=== PATIENT | female | born 1935 | race Asian ===

== ENCOUNTER 2017-08-14 19:08 | Inpatient (IN) | payer MEDICAID, OTHER ==
[~2017-08-14] VITALS: Ht 154.9 cm; Wt 63.5 kg
[~2017-08-14 19:08] MED LIST: ASCO10007 PO; ASPI81TA2 PO; ATOR20TA PO; CALC500T71 PO; CHOL100040 PO; DOXA2TAB PO; LEVO88TA28 PO; LISI40TA4 PO; MULT-1168 PO; OMEG1CAP36 PO; WARF2.5T47 PO
--- NOTE | 2017-08-14 19:12 | NUR ---
DR GONSALES AT BEDSIDE FOR EVAL.
--- NOTE | 2017-08-14 19:53 | NUR ---
ONLINE TRADER AT BEDSIDE FOR BLOOD DRAW.
--- NOTE | 2017-08-14 19:53 | NUR ---
Garland chaudhari in [facility] - 08/14/17 at 2132 by MATTY MANAGER DELI AT BEDSIDE FOR DONALDAL.
[2017-08-14 19:58] LABS: BASOPHILS # (AUTO) 0.1 /CMM (0.0-0.2); EOSINOPHILS # (AUTO) 0.1 /CMM (0.0-0.7); EOSINOPHILS % (AUTO) 1.3 % (0.0-6.0); HEMATOCRIT 37 % (33-45); HEMOGLOBIN 12.8 g/dL (11.5-14.8); LYMPHOCYTES % (AUTO) 23.4 % (20.0-44.0); MEAN CORPUSCULAR HEMOGLOBIN 33 PG (26.0-33.0); MEAN CORPUSCULAR HGB CONC 34 g/dl (31.0-36.0); MEAN CORPUSCULAR VOLUME 97 fL (82-100); MONOCYTES # (AUTO) 0.5 /CMM (0.1-1.30); MONOCYTES % (AUTO) 6.1 % (2.0-12.0); NEUTROPHILS # (AUTO) 5.7 /CMM (1.8-8.9); NEUTROPHILS % (AUTO) 68.2 % (43.0-81.0); PLATELET COUNT (AUTO) 151 /CMM (150-450); RDW COEFFICIENT OF VARIATION 13.1 (11.5-15.0); RED BLOOD CELL COUNT(AUTO) 3.83 MIL/uL (4.0-5.2); WHITE BLOOD COUNT (AUTO) 8.4 K/uL (4.3-11.0)
[2017-08-14 20:08] LABS: CALCIUM, SERUM 9.5 mg/dL (8.5-10.1); CARBON DIOXIDE 28 mmol/L (21-32); CHLORIDE 106 mmol/L (98-107); CREATININE 0.9 mg/dL (0.6-1.3); GLUCOSE 111 mg/dL (74-106); POTASSIUM 3.9 mmol/L (3.5-5.1); SODIUM SERUM 141 mmol/L (136-145); UREA NITROGEN, BLOOD 15 mg/dL (7-18)
[2017-08-14 20:12] LABS: INR 1.01 (0.87-1.13); PROTHROMBIN TIME 10.5 SECS (9.5-12.7)
[2017-08-14 20:16] LABS: TROPONIN I < 0.017 ng/mL (0.00-0.056)
[2017-08-14 20:21] LABS: B-TYPE NATRIURETIC PEPTIDE 222 PG/ML (0-125)
[2017-08-14 20:24] LABS: MAGNESIUM 1.9 mg/dL (1.8-2.4); THYROID STIMULATING HORMONE 2.296 uIU/mL (0.358-3.74)
[2017-08-14] MEDS ORDERED: NITROGLYCERIN PACKET 1 GM PACKET TOP ONE (21:00)
[2017-08-14] MEDS ORDERED: NITROGLYCERIN PACKET 1 GM PACKET ONE (21:34)
[2017-08-14] MEDS ORDERED: MORPHINE SULFATE INJ 2 MG/ML DISP.SYRIN IV PRN (22:00)
[2017-08-14] MEDS ORDERED: NITROGLYCERIN 0.4 MG/TAB BOTTLE SL PRN (22:00)
[2017-08-14] MEDS ORDERED: ONDANSETRON HCL/PF 4 MG/2 ML VIAL IVP PRN (22:00)
[2017-08-14] MEDS ORDERED: WARFARIN SODIUM 2.5 MG TABLET PO SCH (22:00)
[2017-08-14] MEDS ORDERED: ZOLPIDEM TARTRATE 5 MG TABLET PO PRN (22:00)
[2017-08-14] MEDS ORDERED: DOXAZOSIN MESYLATE (1 MG) 1 MG TABLET PO SCH (22:00)
[2017-08-14] MEDS ORDERED: ATORVASTATIN 10 MG TABLET PO SCH (22:00)
--- NOTE | 2017-08-14 22:01 | NUR ---
report given to yo. pt awaiting transfer to floor.
[2017-08-14 22:10] VITALS: BP 138/73
--- NOTE | 2017-08-14 22:10 | NUR ---
FOREIGN LANGUAGE INSTRUCTOR NOTES: RECEIVED PT ON PREM. AT BEDSIDE. PT IS A/OX4. PT REPORTS THAT SHE NO LONGER HAS CHEST PRESSURE. PT HAS IV ON L HAND #18G AND IS PATENT AND INTACT. PT CURRENTLY S/L. CALL LIGHT WITHIN PT'S REACH. BED KEPT IN LOW, LOCKED POSITION, AND SIDE RAILS X 2 UP. WILL CONTINUE TO MONITOR PT. Addendum: 08/15/17 at 0352 by TUYET RAMEY RN PT HAD NITRO BID PATCH ON HER CHEST APPLIED FROM ER.
[2017-08-14] MEDS ORDERED: ASPIRIN 325 MG TABLET PO STA (22:20)
[2017-08-14] MEDS ORDERED: ASPIRIN 325 MG TABLET ONE (22:38)
[2017-08-14] MEDS ORDERED: ATORVASTATIN 10 MG TABLET ONE (22:40)
[2017-08-14] MEDS ORDERED: DOXAZOSIN MESYLATE (1 MG) 1 MG TABLET ONE (22:41)
[2017-08-14 22:50] VITALS: BP 138/73
--- NOTE | 2017-08-14 22:50 | NUR ---
REWINDER NOTES: ASPIRIN 325MG WAS NOT GIVEN BY ER. GAVE IT TO PATIENT PER ORDERING MD JI GONSALES.
[2017-08-15] VITALS: BP 110/50
--- NOTE | 2017-08-15 00:37 | NUR ---
MOTORCYLES FINAL INSPECTOR NOTES: DIONI OSEGUERA IN PT'S ROOM. GOT VERBAL ORDER TO STOP ASPIRIN AND START ELIQUIS 5MG PO BID IN THE MORNING. Addendum: 08/15/17 at 0053 by TUYET RAMEY RN ALSO TO STOP COUMADIN.
[2017-08-15 04:00] VITALS: BP 121/57
[2017-08-15] MEDS ORDERED: APIXABAN 5 MG TABLET PO SCH ×2 (06:00→09:00)
--- NOTE | 2017-08-15 06:45 | NUR ---
CASHIER WRAPPER CLOSING NOTES: ALL NEEDS WERE ATTENDED AND ANTICIPATED FOR. PT IS RESTING IN BED COMFORTABLY. PT KEPT CLEAN, DRY, AND COMFORTABLE. PT HAS IV ON L HAND AND IS PATENT AND INTACT. PT CURRENTLY S/L. PT ON TELE MONITOR AND READING SHOWS SB 56. PT IS A/OX4. NO COMPLAINTS OF PAIN AT THIS TIME. NO S/S OF DISTRESS. CALL LIGHT WITHIN PT'S REACH. BED KEPT IN LOW, LOCKED POSITION, AND SIDE RAILS X 2UP. WILL ENDORSE TO AM NURSE FOR SUZE.
[2017-08-15 06:49] LABS: CHOLESTEROL 146 mg/dL (<200); HDL CHOLESTEROL 77 mg/dL (40-60); LDL 65 mg/dL (0-99); TRIGLYCERIDES 64 mg/dL (30-150)
[2017-08-15] MEDS ORDERED: NITROGLYCERIN 30 GM TUBE TP PRN (07:00)
--- NOTE | 2017-08-15 07:15 | NUR ---
SOA INTEGRATION DEVELOPER OPENING NOTES RECEIVED PT IN STABLE CONDITION. PATIENT IS ALERT AND ORIENTED. CALL LIGHT IS WITHIN REACH. BEDSIDE RAILS ARE UP X2. BED IS LOCKED AND LOWERED. WILL CONTINUE TO MONITOR.
[2017-08-15 08:00] VITALS: BP 131/54
[2017-08-15 08:21] VITALS: BP 131/71
[2017-08-15] MEDS ORDERED: CALCIUM CARBONATE (1250) 500 MG TABLET PO SCH (09:00)
[2017-08-15] MEDS ORDERED: LISINOPRIL (20MG) 20 MG TABLET PO SCH (09:00)
[2017-08-15] MEDS ORDERED: LEVOTHYROXINE SODIUM 88 MCG TABLET PO SCH (09:00)
[2017-08-15] MEDS ORDERED: ASPIRIN 81 MG TAB.CHEW PO SCH (09:00)
--- NOTE | 2017-08-15 09:10 | NUR ---
PATIENTS (JADA) GAVE ME A COPY OF THE PT'S ADVANCED DIRECTIVE. MADE A COPY AND PLACED IT IN THE FILE.
[2017-08-15 11:51] LABS: BASOPHILS % (AUTO) 0.6 % (0.0-2.0); EOSINOPHILS # (AUTO) 0.1 /CMM (0.0-0.7); EOSINOPHILS % (AUTO) 2.1 % (0.0-6.0); HEMATOCRIT 33 % (33-45); HEMOGLOBIN 10.9 g/dL (11.5-14.8); LYMPHOCYTES # (AUTO) 1.9 /CMM (0.8-4.8); LYMPHOCYTES % (AUTO) 30.9 % (20.0-44.0); MEAN CORPUSCULAR HEMOGLOBIN 33 PG (26.0-33.0); MEAN CORPUSCULAR HGB CONC 33 g/dl (31.0-36.0); MEAN CORPUSCULAR VOLUME 99 fL (82-100); MONOCYTES # (AUTO) 0.5 /CMM (0.1-1.30); MONOCYTES % (AUTO) 7.9 % (2.0-12.0); NEUTROPHILS # (AUTO) 3.6 /CMM (1.8-8.9); NEUTROPHILS % (AUTO) 58.5 % (43.0-81.0); PLATELET COUNT (AUTO) 139 /CMM (150-450); RDW COEFFICIENT OF VARIATION 14.3 (11.5-15.0); RED BLOOD CELL COUNT(AUTO) 3.28 MIL/uL (4.0-5.2); WHITE BLOOD COUNT (AUTO) 6.2 K/uL (4.3-11.0)
[2017-08-15 12:02] LABS: PHOSPHORUS 4.2 mg/dL (2.5-4.9)
--- NOTE | 2017-08-15 15:00 | NUR ---
YOGA TEACHER NOTES PATIENT WAS DISCHARGED HOME IN STABLE CONDITION. PATIENT ALERT AND ORIENTED. PATIENT WAS EDUCATED ABOUT DISCHARGE INSTRUCTIONS. IV WAS REMOVED. PATIENT WAS ABLE TO WALK OUT OF THE FACILITY. PATIENTS SON WILL DRIVE THE PATIENT HOME.
== END 2017-08-15 16:50 | disposition home or self-care (01) | DRG 303 ==
LOC: ER 19:09 → TELE 21:22 → MED 08-15 09:06 → TELE 08-15 09:09
PROVIDERS: ADMIT Nurse Practitioner Acute Care; ATTEND Nurse Practitioner Acute Care
DX: I25.110 Atherosclerotic heart disease of native coronary artery with unstable angina pectoris (principal); I48.0 Paroxysmal atrial fibrillation; I16.0 Hypertensive urgency; E03.9 Hypothyroidism, unspecified; E78.5 Hyperlipidemia, unspecified; M19.90 Unspecified osteoarthritis, unspecified site; Z79.899 Other long term (current) drug therapy; Z87.891 Personal history of nicotine dependence; Z88.0 Allergy status to penicillin
CPT/HCPCS: 36415; 71010-TC; 80048-TC; 80061-TC; 83735-TC; 83880; 84100-TC; 84443-TC; 84484-TC; 85025-TC; 85730-TC; 87081-TC; 93307-TC; A4606; Z7610

== ENCOUNTER 2020-03-27 01:29 | Emergency (ER) | payer MEDICAID, OTHER ==
[~2020-03-27] VITALS: Ht 154.9 cm; Wt 63.5 kg
[~2020-03-27 01:29] MED LIST changes: +ASPI-1169 PO; -ASPI81TA2 PO; +CALC-1026 PO; -CALC500T71 PO; -LEVO88TA28 PO; +LEVO88TA39 PO; +WARF2.5T PO; -WARF2.5T47 PO
[2020-03-27] MEDS ORDERED: DILTIAZEM HCL 25 MG IV ONE (01:52)
[2020-03-27] MEDS ORDERED: DILTIAZEM HCL 50 MG IV IV ONE (02:00)
--- NOTE | 2020-03-27 02:12 | NUR ---
PATIENT CAME TO ER BED 9 C/O "I THINK I AM HAVING ATRIAL FIBRILLATION". PATIENT STATES THAT SHE TOOK. AMIODARONE 100MG IN 1110 AND DOXAZOSIN 4MG AT 0630 OF YESTERDAY. PATIENT DENIES CHEST PAIN, DENIES SHORTNESS OF BREATH. AAOX4. BREATHING EVENLY AND UNLABORED ON ROOM AIR. CONNECTED TO CLEANER CARPET AND UPHOLSTERY.
[2020-03-27 02:24] LABS: BASOPHILS % (AUTO) 0.5 % (0.0-2.0); EOSINOPHILS % (AUTO) 1.1 % (0.0-6.0); HEMATOCRIT 36 % (33-45); HEMOGLOBIN 12.2 g/dL (11.5-14.8); LYMPHOCYTES # (AUTO) 2.8 /CMM (0.8-4.8); LYMPHOCYTES % (AUTO) 33.2 % (20.0-44.0); MEAN CORPUSCULAR HGB CONC 34 g/dl (31.0-36.0); MEAN CORPUSCULAR VOLUME 97 fL (82-100); MONOCYTES # (AUTO) 0.6 /CMM (0.1-1.30); NEUTROPHILS # (AUTO) 4.9 /CMM (1.8-8.9); NEUTROPHILS % (AUTO) 58.2 % (43.0-81.0); PLATELET COUNT (AUTO) 164 /CMM (150-450); RED BLOOD CELL COUNT(AUTO) 3.73 MIL/uL (4.0-5.2); WHITE BLOOD COUNT (AUTO) 8.4 K/uL (4.3-11.0)
--- NOTE | 2020-03-27 02:24 | NUR ---
TECH AT BEDSIDE FOR EKG
--- NOTE | 2020-03-27 02:37 | NUR ---
tech at bedside for 2nd ekg.
[2020-03-27 02:44] LABS: CALCIUM, SERUM 9.2 mg/dL (8.5-10.1); CARBON DIOXIDE 27 mmol/L (21-32); CHLORIDE 106 mmol/L (98-107); CREATININE 1.1 mg/dL (0.6-1.3); GLUCOSE 138 mg/dL (74-106); POTASSIUM 3.7 mmol/L (3.5-5.1); SODIUM SERUM 141 mmol/L (136-145); UREA NITROGEN, BLOOD 18 mg/dL (7-18)
[2020-03-27 02:49] LABS: ALANINE AMINOTRANSFERASE 33 U/L (12-78); ALBUMIN 3.8 g/dL (3.4-5.0); ALKALINE PHOSPHATASE 62 U/L (46-116); ASPARTATE AMINOTRANSFERASE 20 U/L (15-37); B-TYPE NATRIURETIC PEPTIDE 261 PG/ML (0-125); BILIRUBIN,DIRECT 0.1 mg/dL (0.0-0.2); BILIRUBIN,TOTAL 0.4 mg/dL (0.2-1.0); TOTAL PROTEIN, SERUM 7.2 g/dL (6.4-8.2)
--- NOTE | 2020-03-27 02:53 | NUR ---
IV removed. Catheter intact and site benign. Pressure and 4x4 applied to site. No bleeding noted.
--- NOTE | 2020-03-27 02:53 | NUR ---
Patient discharged to home in stable condition. Written and verbal after care instructions given. Patient verbalizes understanding of instruction.
--- NOTE | 2020-03-27 02:53 | NUR ---
OUTSIDE TO OIL SALES AND SERVICE REP PATIENT.
[2020-03-27 03:02] VITALS: BP 138/62
== END 2020-03-27 03:04 | disposition home or self-care (01) ==
LOC: ER 01:34
DX: I48.91 Unspecified atrial fibrillation (principal); I10 Essential (primary) hypertension; E78.00 Pure hypercholesterolemia, unspecified; M19.90 Unspecified osteoarthritis, unspecified site; Z88.0 Allergy status to penicillin; Z87.891 Personal history of nicotine dependence; Z79.82 Long term (current) use of aspirin; Z79.899 Other long term (current) drug therapy
CPT/HCPCS: 36415; 71045; 80048; 80076; 83880; 84484; 85025; 85730; 93005 ×2; 99285; J3490

== ENCOUNTER 2020-11-16 03:56 | Inpatient (IN) | payer OTHER ==
[~2020-11-16] VITALS: Ht 154.9 cm; Wt 61.5 kg
[~2020-11-16 03:56] MED LIST changes: +ASCO100058 PO; -ASCO10007 PO; +LISI40TA13 PO; -LISI40TA4 PO
--- NOTE | 2020-11-16 04:00 | NUR ---
PATIENT CAME TO THE ED BED 11 C/O "ABNORMAL HEART RHYTHM" WHILE AT HOME. PATIENT HAS HISTORY OF ATRIAL FIBRILLATION. UPON ARRIVAL, PATIENT WAS SEEN BY MD AND SAW AN A SHAUN W/ RVR. PATIENT IS AAOX.4 NO SOB .BREATHING EVENLY AND UNLABORED ON ROOM AIT. CONNECTED TO THE MANAGER OF CASE.
[2020-11-16] MEDS ORDERED: DILTIAZEM HCL 30 MG TABLET ONE (04:17)
--- NOTE | 2020-11-16 04:24 | NUR ---
AT BEDSIDE. PATIENT HAS CONVERTED TO NORMAL SINUS RHYTHM.
[2020-11-16] MEDS ORDERED: DILTIAZEM HCL 50 MG IV IV ONE (04:30)
[2020-11-16] MEDS ORDERED: DILTIAZEM HCL 30 MG TABLET PO ONE (04:30)
[2020-11-16 04:44] LABS: BASOPHILS % (AUTO) 0.4 % (0.0-2.0); EOSINOPHILS % (AUTO) 2.5 % (0.0-6.0); HEMATOCRIT 40 % (33-45); HEMOGLOBIN 13.6 g/dL (11.5-14.8); LYMPHOCYTES # (AUTO) 3.4 /CMM (0.8-4.8); LYMPHOCYTES % (AUTO) 31.5 % (20.0-44.0); MEAN CORPUSCULAR HGB CONC 34 g/dl (31.0-36.0); MEAN CORPUSCULAR VOLUME 98 fL (82-100); MONOCYTES # (AUTO) 0.6 /CMM (0.1-1.30); NEUTROPHILS # (AUTO) 6.5 /CMM (1.8-8.9); NEUTROPHILS % (AUTO) 59.6 % (43.0-81.0); PLATELET COUNT (AUTO) 187 /CMM (150-450); RED BLOOD CELL COUNT(AUTO) 4.11 MIL/uL (4.0-5.2); WHITE BLOOD COUNT (AUTO) 10.8 K/uL (4.3-11.0)
[2020-11-16 05:00] LABS: CALCIUM, SERUM 9.4 mg/dL (8.5-10.1); POTASSIUM 3.8 mmol/L (3.5-5.1)
[2020-11-16] MEDS ORDERED: AMLO5TAB4 PO (05:58)
[2020-11-16] MEDS ORDERED: APIX2.5T PO (05:58)
[2020-11-16] MEDS ORDERED: METO25TA4 PO (05:58)
[2020-11-16] MEDS ORDERED: ASPIRIN 81 MG TAB.CHEW PO ONE (06:00)
--- NOTE | 2020-11-16 06:17 | NUR ---
NOTED BRADYCARDIA. PT STILL ON CONTINUOUS SATELLITE TELEVISION INSTALLER AND PULSE. NO ACUTE DISTRESS NOTED AT THIS TIME. DR. SWARTZ MADE AWARE.
--- NOTE | 2020-11-16 06:20 | NUR ---
DR. SWARTZ SPEAKING WITH DR. WELCH (PRAVIN SILVERIO). REC'D VERBAL AUTH TO ADMIT PT TO [facility]
[2020-11-16] MEDS ORDERED: ASPIRIN 325 MG TABLET ONE (06:28)
[2020-11-16] MEDS ORDERED: ONDANSETRON HCL/PF 4 MG/2 ML VIAL IVP PRN (07:00)
[2020-11-16] MEDS ORDERED: ACETAMINOPHEN 325 MG TABLET PO PRN (07:00)
[2020-11-16] MEDS ORDERED: MAG HYDROX/AL HYDROX/SIMETH 30 ML UDC PO PRN (07:00)
[2020-11-16] MEDS ORDERED: Z GUARD REMEDY 2 OZ OINT TP PRN (07:00)
[2020-11-16] MEDS ORDERED: MAGNESIUM HYDROXIDE 30 ML UDC PO PRN (07:00)
[2020-11-16] MEDS ORDERED: ZOLPIDEM TARTRATE 5 MG TABLET PO PRN (07:00)
[2020-11-16] MEDS ORDERED: HYDROCODONE/APAP 5/325MG TABLET PO PRN (07:00)
--- NOTE | 2020-11-16 07:15 | NUR ---
ASSESSED PT ON BED AWAKE AND ALERT NOT IN RESPIRATORY DISTRESS, V/S STABLE, KEPT RESTED AND COMFORTABLE. WILL CONTINUE TO MONITOR.
--- NOTE | 2020-11-16 07:24 | NUR ---
faxed facesheet to ellie from [facility] [phone]
[2020-11-16] MEDS ORDERED: LEVOTHYROXINE SODIUM 100 MCG TABLET ONE (07:51)
[2020-11-16] MEDS: LEVOTHYROXINE SODIUM 100 MCG TABLET PO SCH (07:58)
--- NOTE | 2020-11-16 08:13 | NUR ---
AT BEDSIDE FOR EVAL.
[2020-11-16] MEDS ORDERED: APIXABAN 2.5 MG TABLET ONE (08:23)
[2020-11-16] MEDS ORDERED: ASPIRIN 81 MG TAB.CHEW ONE (08:23)
[2020-11-16] MEDS: ASPIRIN 81 MG TAB.CHEW PO SCH (08:35)
--- NOTE | 2020-11-16 08:37 | NUR ---
room [id number]
[2020-11-16] MEDS: METOPROLOL SUCCINATE 25 MG TAB.SR.24H PO SCH ×2 (08:38→17:29)
[2020-11-16] MEDS: APIXABAN 2.5 MG TABLET PO SCH ×2 (08:39→17:28)
[2020-11-16] MEDS: LISINOPRIL (20MG) 20 MG TABLET PO SCH ×2 (08:39→17:29)
--- NOTE | 2020-11-16 08:39 | NUR ---
LISINOPRIL AND METOPROLOL NOT GIVEN HR IS 53 AND BP OF 128/54.
--- NOTE | 2020-11-16 08:45 | NUR ---
report given to Eryn TRAN for brandon
--- NOTE | 2020-11-16 09:00 | NUR ---
RN NOTES ADMITTED PATIENT FROM ER, REPORT GIVEN BY DANII TRAN. PATIENT ALERT ORIENTED X 4. NO ACUTE DISTRESS NOTED, BREATHING UNLABORED. IV ACCESS PATENT NAD INTACT. PLACED PROCESS CONTROL TECH. ORIENTED TO THE ROOM. CALL LIGHT WITHIN REACH. SAFETY MEASURES IN PLACED. WILL CONTINUE TO MONITOR ACCORDINGLY.
[2020-11-16 09:30] VITALS: BP 129/55
[2020-11-16 12:00] VITALS: BP 151/57
[2020-11-16 16:00] VITALS: BP 154/58
--- NOTE | 2020-11-16 18:59 | NUR ---
GLASS ARTIST NOTES PATIENT IN BED ALERT ORIENTED X 4. NO ACUTE DISTRESS NOTED. BREATHING UNLABORED. NO SOB NOTED. IV ACCESS PATENT AND INTACT, NO REDNESS, NO SWELLING NOTED. NEEDS ATTENDED AND ANTICIPATED. KEPT, CLEAN DRY AND COMFORTABLE. SAFETY MEASURES IN PLACE. CALL LIGHT WITHIN REACH. WILL ENDORSE TO NIGHT NURSE FOR CONTINUITY OF CARE.
--- NOTE | 2020-11-16 19:30 | NUR ---
TELE/RN OPENING RECEIVED PATIENT IN BED RESTING. PATIENT IS ALERT AND ORIENTED X 4. PATIENTS BREATHING IS EVEN AND UNLABORED. NO SIGNS OF SOB OR RESPIRATORY DISTRESS NOTED. PATIENT STATES NO PAIN AT THIS TIME. PATIENT IV ACCESS ON LFA INTACT FLUSHING WELL. SAFETY MEASURES ARE IN PLACE, BED IS LOCKED AND PLACED IN THE LOWEST POSITION, SIDE RAILS UP X 2, CALL LIGHT IS WITHIN REACH. WILL CONTINUE TO MONITOR THROUGH OUT SHIFT.
[2020-11-16 20:00] VITALS: BP 141/65
[2020-11-16] MEDS ORDERED: AMLODIPINE BESYLATE 5 MG TABLET PO SCH (22:00)
[2020-11-17] VITALS: BP 138/53
[2020-11-17 04:00] VITALS: BP 142/83
--- NOTE | 2020-11-17 06:40 | NUR ---
TELE/RN CLOSING NOTES PATIENT IN BED RESTING. PATIENT IS ALERT AND ORIENTED X 4. PATIENTS BREATHING IS EVEN AND UNLABORED. NO SIGNS OF SOB OR RESPIRATORY DISTRESS NOTED. PATIENT STATES NO PAIN AT THIS TIME. PATIENT IV ACCESS ON LFA INTACT FLUSHING WELL. PATIENT ABLE TO AMBULATE BY SELF. ALL NEED HAVE BEEN MET DURING SHIFT. SAFETY MEASURES ARE IN PLACE, BED IS LOCKED AND PLACED IN THE LOWEST POSITION, SIDE RAILS UP X 2, CALL LIGHT IS WITHIN REACH. WILL ENDORSE CARE TO DAY SHIFT NURSE.
[2020-11-17 06:47] LABS: BASOPHILS % (AUTO) 0.4 % (0.0-2.0); EOSINOPHILS % (AUTO) 3.1 % (0.0-6.0); HEMATOCRIT 36 % (33-45); HEMOGLOBIN 12.3 g/dL (11.5-14.8); LYMPHOCYTES # (AUTO) 4.4 /CMM (0.8-4.8); LYMPHOCYTES % (AUTO) 46.7 % (20.0-44.0); MEAN CORPUSCULAR HGB CONC 34 g/dl (31.0-36.0); MEAN CORPUSCULAR VOLUME 98 fL (82-100); MONOCYTES # (AUTO) 0.6 /CMM (0.1-1.30); MONOCYTES % (AUTO) 6.7 % (2.0-12.0); NEUTROPHILS # (AUTO) 4.1 /CMM (1.8-8.9); NEUTROPHILS % (AUTO) 43.1 % (43.0-81.0); PLATELET COUNT (AUTO) 183 /CMM (150-450); RED BLOOD CELL COUNT(AUTO) 3.72 MIL/uL (4.0-5.2); WHITE BLOOD COUNT (AUTO) 9.5 K/uL (4.3-11.0)
[2020-11-17] MEDS: LEVOTHYROXINE SODIUM 100 MCG TABLET PO SCH (07:02)
[2020-11-17 07:09] LABS: ALBUMIN 3.3 g/dL (3.4-5.0); BILIRUBIN,TOTAL 0.5 mg/dL (0.2-1.0); CALCIUM, SERUM 9.3 mg/dL (8.5-10.1); MAGNESIUM 1.9 mg/dL (1.8-2.4); PHOSPHORUS 3.7 mg/dL (2.5-4.9); POTASSIUM 4.5 mmol/L (3.5-5.1); TOTAL PROTEIN, SERUM 6.5 g/dL (6.4-8.2)
--- NOTE | 2020-11-17 07:25 | NUR ---
MOBILE HOME LOT UTILITY WORKER OPENING NOTES RECEIVED PATIENT AWAKE AND SITTING IN BED. A/O X4. ABLE TO MAKE NEEDS KNOWN, DENIES PAIN OR ANY DISCOMFORTS AT THIS TIME AND STATED THAT SHE'S READY TO GO HOME. ON ROOM AIR, BREATHING EVEN AND UNLABORED. ON EXTERNAL ENTERPRISE SOFTWARE ENGINEER WITH CURRENT READING OF SB W/ HR OF 59, NO C/O CARDIAC DISTRESS VOICED. IV ACCES ON LFA INTACT AND PATENT. SAFETY MEASURES IN PLACE: BED IS LOW AND LOCKED, SIDE RAILS UP X2 AND CALL LIGHT WITHIN REACH. WILL CONTINUE TO MONITOR.
[2020-11-17 08:00] VITALS: BP 153/60
[2020-11-17] MEDS ORDERED: DIGO125T PO (08:16)
[2020-11-17 08:21] VITALS: BP 153/60
[2020-11-17] MEDS: LISINOPRIL (20MG) 20 MG TABLET PO SCH (08:21)
[2020-11-17] MEDS: ASPIRIN 81 MG TAB.CHEW PO SCH (08:23)
[2020-11-17] MEDS: APIXABAN 2.5 MG TABLET PO SCH (08:25)
--- NOTE | 2020-11-17 14:31 | NUR ---
RN DISCHARGED NOTES PT DISCHARGED HOME IN STABLE CONDITION. A/O X4 AND ABLE TO MAKE NEEDS KNOWN. V/S TAKEN, STABLE AND RECORDED. OFFERED TO GIVE FLU SHOT BUT PT REFUSED ,STATED THAT SHE TOOK ALREADY HER FLU SHOT ON JUN OR JUL 2020, SHE JUST COULDN'T REMEMBER THAT EXACT MONTH AND DATE. ALL BELONGINGS ACCOUNTED FOR AND SIGNED FORM. IV ACCESS ON LFA REMOVED, DRY PRESSURE DRESSING APPLIED TO SITE. NAME ARMBAND REMOVED. HEALTH TEACHINGS/DISCHARGED INSTRUCTIONS GIVEN TO PT AND VERBALIZED UNDERSTANDING. EXIT FOLDER HANDED TO PT. PT LEFT UNIT [place] WHEELCHAIR @ [id number] ACCOMPANIED BY ME TO [facility]EE. PT'S SON JEANMARIE WILL TAKE PT'S HOME. MD AND CHARGE NURSE AWARE OF DISCHARGE.
[2020-11-17] MEDS ORDERED: AMLODIPINE BESYLATE 5 MG TABLET PO SCH (22:00)
== END 2020-11-17 14:25 | disposition home or self-care (01) | DRG 282 ==
LOC: ER 03:58 → TRANSITION 06:38 → TELE 08:51
PROVIDERS: ADMIT Family Medicine; ATTEND Family Medicine
DX: I49.5 Sick sinus syndrome (principal); I21.A1 Myocardial infarction type 2; I48.91 Unspecified atrial fibrillation; I10 Essential (primary) hypertension; E78.00 Pure hypercholesterolemia, unspecified; M19.90 Unspecified osteoarthritis, unspecified site; E78.5 Hyperlipidemia, unspecified; E03.9 Hypothyroidism, unspecified; Z88.1 Allergy status to other antibiotic agents; Z88.0 Allergy status to penicillin; Z79.82 Long term (current) use of aspirin; Z79.899 Other long term (current) drug therapy; Z79.01 Long term (current) use of anticoagulants; Z79.890 Hormone replacement therapy; Z87.891 Personal history of nicotine dependence
CPT/HCPCS: 36415; 71045-TC; 80048-TC; 80053-TC; 80061-TC; 83735-TC; 84100-TC; 84484-TC; 85025-TC; 87081-TC; 93307-TC; C9803; G0378; J2405

== ENCOUNTER 2020-11-23 00:04 | Emergency (ER) | payer OTHER ==
[~2020-11-23] VITALS: Ht 154.9 cm; Wt 61.2 kg
[~2020-11-23 00:04] MED LIST changes: +AMLO5TAB4 PO; +APIX2.5T PO; -ASCO100058 PO; -ASPI-1169 PO; -ATOR20TA PO; -CALC-1026 PO; -CHOL100040 PO; +DIGO125T PO; -DOXA2TAB PO; -MULT-1168 PO; -OMEG1CAP36 PO; -WARF2.5T PO
--- NOTE | 2020-11-23 00:10 | NUR ---
BIBSELF C/O PALPITATIONS. LAST DOSE DIGOXIN @ 1800 AND AMLODIPINE @ 2240, pt aaox4, -sob, nad noted,vss pending md lopez
[2020-11-23 01:04] LABS: BASOPHILS % (AUTO) 0.5 % (0.0-2.0); EOSINOPHILS % (AUTO) 2.5 % (0.0-6.0); HEMATOCRIT 35 % (33-45); HEMOGLOBIN 12.1 g/dL (11.5-14.8); LYMPHOCYTES # (AUTO) 3.1 /CMM (0.8-4.8); LYMPHOCYTES % (AUTO) 30.7 % (20.0-44.0); MEAN CORPUSCULAR HGB CONC 34 g/dl (31.0-36.0); MEAN CORPUSCULAR VOLUME 98 fL (82-100); MONOCYTES # (AUTO) 0.6 /CMM (0.1-1.30); MONOCYTES % (AUTO) 6.1 % (2.0-12.0); NEUTROPHILS % (AUTO) 60.2 % (43.0-81.0); PLATELET COUNT (AUTO) 181 /CMM (150-450); RED BLOOD CELL COUNT(AUTO) 3.61 MIL/uL (4.0-5.2)
[2020-11-23 01:11] LABS: CALCIUM, SERUM 9.5 mg/dL (8.5-10.1); CREATININE 0.8 mg/dL (0.6-1.3); POTASSIUM 3.8 mmol/L (3.5-5.1)
[2020-11-23 01:12] LABS: DIGOXIN 0.92 ng/mL (0.90-2.00)
--- NOTE | 2020-11-23 01:51 | NUR ---
Patient discharged to home in stable condition. Written and verbal after care instructions given. Patient verbalizes understanding of instruction.
[2020-11-23 02:01] VITALS: BP 159/69
== END 2020-11-23 02:01 | disposition home or self-care (01) ==
LOC: ER 00:06
DX: I48.91 Unspecified atrial fibrillation (principal); I10 Essential (primary) hypertension; M19.90 Unspecified osteoarthritis, unspecified site; Z90.89 Acquired absence of other organs; Z88.0 Allergy status to penicillin; Z88.1 Allergy status to other antibiotic agents; Z87.891 Personal history of nicotine dependence; Z79.899 Other long term (current) drug therapy
CPT/HCPCS: 36415; 71045-TC; 80048-TC; 80162-TC; 83880; 84484-TC; 85025-TC

== ENCOUNTER 2021-05-08 16:06 | Inpatient (IN) | payer OTHER ==
[~2021-05-08] VITALS: Ht 154.9 cm; Wt 61.2 kg
[2021-05-08] MEDS ORDERED: OMEG-15 PO (16:42)
[2021-05-08] MEDS ORDERED: CHOL100062 PO (16:42)
[2021-05-08] MEDS ORDERED: ATOR40TA PO (16:42)
[2021-05-08] MEDS ORDERED: MULT-1168 PO (16:42)
[2021-05-08] MEDS ORDERED: GABA-532 PO (16:42)
[2021-05-08] MEDS ORDERED: ASCO-352 PO (16:43)
--- NOTE | 2021-05-08 17:15 | NUR ---
PHIL FROM HOME TO ER BED 7. AAOX4. NOT IN RESP DISTRESS, BREATHING EVEN AND UNLABORED. AMBULATORY. CAME IN FOR LOW HR WHICH SHE REPORTS AT 38. NOTED 40 ON MONITOR. PT ALSO VERBALIZES THAT SHE "FEELS LOUSY". DENIES ANY CHEST. NO DIZZYNESS. PT ALSO VERBALIZES THAT SHE HAS DIFFICULTY PEEING, LAST ONE WAS PRIOR TO GETTING HERE. MD WAS AT THE BEDSIDE FOR SUZIE. ORDERS RECEIVED, NOTED AND CARRIED OUT. IV LINE ESTABLISHED ON LFA 20G, BLOOD DRAWN AND GIVEN TO PHLEB AT BEDSIDE. PT ON MONITOR.
[2021-05-08 17:20] LABS: BASOPHILS % (AUTO) 0.4 % (0.0-2.0); EOSINOPHILS % (AUTO) 0.8 % (0.0-6.0); HEMATOCRIT 31 % (33-45); HEMOGLOBIN 10.9 g/dL (11.5-14.8); LYMPHOCYTES # (AUTO) 4.2 K/uL (0.8-4.8); LYMPHOCYTES % (AUTO) 40.6 % (20.0-44.0); MEAN CORPUSCULAR HGB CONC 36 g/dl (31.0-36.0); MEAN CORPUSCULAR VOLUME 97 fL (82-100); MONOCYTES # (AUTO) 0.7 K/uL (0.1-1.30); MONOCYTES % (AUTO) 6.7 % (2.0-12.0); NEUTROPHILS # (AUTO) 5.4 K/uL (1.8-8.9); NEUTROPHILS % (AUTO) 51.5 % (43.0-81.0); PLATELET COUNT (AUTO) 171 K/uL (150-450); RED BLOOD CELL COUNT(AUTO) 3.16 MIL/uL (4.0-5.2); WHITE BLOOD COUNT (AUTO) 10.4 K/uL (4.3-11.0)
[2021-05-08 17:32] LABS: ALANINE AMINOTRANSFERASE 51 U/L (12-78); ALBUMIN 3.5 g/dL (3.4-5.0); ALKALINE PHOSPHATASE 62 U/L (46-116); ASPARTATE AMINOTRANSFERASE 27 U/L (15-37); BILIRUBIN,DIRECT 0.1 mg/dL (0.0-0.2); BILIRUBIN,TOTAL 0.3 mg/dL (0.2-1.0); CALCIUM, SERUM 8.6 mg/dL (8.5-10.1); CARBON DIOXIDE 21 mmol/L (21-32); CHLORIDE 99 mmol/L (98-107); CREATININE 1.7 mg/dL (0.6-1.3); GLUCOSE 106 mg/dL (74-106); POTASSIUM 4.6 mmol/L (3.5-5.1); SODIUM SERUM 133 mmol/L (136-145); TOTAL PROTEIN, SERUM 6.4 g/dL (6.4-8.2); UREA NITROGEN, BLOOD 30 mg/dL (7-18)
--- NOTE | 2021-05-08 18:10 | NUR ---
Garland chaudhari in [facility] - 05/08/21 at 1828 by LUCERO EPIC HEMSTITCHER CONSULTED WITH TORI SILVERIO
--- NOTE | 2021-05-08 18:10 | NUR ---
PAGED EPIC FOSTER CARE CASE MANAGER
--- NOTE | 2021-05-08 19:47 | NUR ---
CALLED STRATEGIC MANAGER FOR TELE BED
--- NOTE | 2021-05-08 20:19 | NUR ---
TELE BED: 310-8
[2021-05-08] MEDS ORDERED: ONDANSETRON HCL/PF 4 MG/2 ML VIAL IVP PRN (20:30)
[2021-05-08] MEDS ORDERED: MAGNESIUM HYDROXIDE 30 ML UDC PO PRN (20:30)
[2021-05-08] MEDS ORDERED: IV NS 0.9% 1,000 ML IV PRN (20:30)
[2021-05-08] MEDS ORDERED: ZOLPIDEM TARTRATE 5 MG TABLET PO PRN (20:30)
[2021-05-08] MEDS ORDERED: ACETAMINOPHEN 325 MG TABLET PO PRN (20:30)
[2021-05-08 20:45] VITALS: BP 148/46
--- NOTE | 2021-05-08 20:45 | NUR ---
CHEMISTRY LABORATORY TECHNICIANLITHOGRAPHERS PRINTER NOTE PT TRANSPORTED VIA GURNEY TO UNIT AT THIS TIME. PT ADMITTED TO TELE UNDER [facility] [employer] MEDICAL CASH POSTER FOR ADMITTING DX OF AUDREY. A/O X4. PT STABLE ON ROOM AIR. NO SOB OR S/S OF RESPIRATORY DISTRESS NOTED. PT HAS NO C/O PAIN OR DISCOMFORT AT THIS TIME. PT ON EXTERNAL TOPPIECE CUTTER READING SB AT 48 BPM. IV ACCESS IN LFA #20. ORIENTED PT TO STAFF, UNIT, AND ROOM. SAFETY PRECAUTIONS MAINTAINED. BED IN LOWEST LOCKED POSITION, HOB ELEVATED, SIDE RAILS UP X2. CALL LIGHT AND TABLE WITHIN REACH. WILL CONTINUE TO MONITOR.
--- NOTE | 2021-05-08 20:53 | NUR ---
pt was transferred to 310 under acls
[2021-05-08] MEDS: GABAPENTIN 100 MG CAPSULE PO SCH (22:52)
[2021-05-08] MEDS: APIXABAN 2.5 MG TABLET PO SCH (22:52)
[2021-05-09] VITALS: BP 148/48
[2021-05-09 04:00] VITALS: BP 111/42
[2021-05-09 06:23] LABS: BASOPHILS % (AUTO) 0.4 % (0.0-2.0); EOSINOPHILS % (AUTO) 2.1 % (0.0-6.0); HEMATOCRIT 35 % (33-45); LYMPHOCYTES % (AUTO) 43.2 % (20.0-44.0); MEAN CORPUSCULAR HGB CONC 34 g/dl (31.0-36.0); MEAN CORPUSCULAR VOLUME 99 fL (82-100); MONOCYTES # (AUTO) 0.5 K/uL (0.1-1.30); NEUTROPHILS # (AUTO) 3.3 K/uL (1.8-8.9); NEUTROPHILS % (AUTO) 47.3 % (43.0-81.0); PLATELET COUNT (AUTO) 181 K/uL (150-450); RED BLOOD CELL COUNT(AUTO) 3.53 MIL/uL (4.0-5.2)
[2021-05-09 06:50] LABS: CALCIUM, SERUM 8.7 mg/dL (8.5-10.1); CREATININE 1.2 mg/dL (0.6-1.3); MAGNESIUM 2.3 mg/dL (1.8-2.4); POTASSIUM 4.7 mmol/L (3.5-5.1)
--- NOTE | 2021-05-09 06:58 | NUR ---
JOGGER OPERATOR CLOSING NOTE . A/O X4. PT STABLE ON ROOM AIR. NO SOB OR S/S OF RESPIRATORY DISTRESS NOTED. PT HAS NO C/O PAIN OR DISCOMFORT AT THIS TIME. PT ON EXTERNAL BOWLING ALLEY OPERATOR READING SB AT 48 BPM. IV ACCESS IN LFA #20. ORIENTED PT TO STAFF, UNIT, AND ROOM. SAFETY PRECAUTIONS MAINTAINED. BED IN LOWEST LOCKED POSITION, HOB ELEVATED, SIDE RAILS UP X2. CALL LIGHT AND TABLE WITHIN REACH. WILL CONTINUE TO MONITOR Addendum: 05/09/21 at 0733 by PANKAJ MIGUEL RN JOGGER OPERATOR CLOSING NOTE PT IS AWAKE IN BED. A/O X4. PT IS STABLE ON ROOM AIR. NO SOB OR S/S OF RESPIRATORY DISTRESS NOTED. PT HAS NO C/O PAIN OR DISCOMFORT AT THIS TIME. PT ON EXTERNAL BOWLING ALLEY OPERATOR READING SB AT 45 BPM. IV ACCESS IS INTACT, PATENT, AND FLUSHING WELL. ALL NEEDS HAVE BEEN MET. SAFETY AND ASPIRATION PRECAUTIONS MAINTAINED AT ALL TIMES. BED IN LOWEST LOCKED POSITION, HOB ELEVATED, SIDE RAILS UP X2. CALL LIGHT AND TABLE WITHIN REACH. WILL ENDORSE TO ONCOMING NURSE FOR SUZE.
[2021-05-09] MEDS ORDERED: LEVOTHYROXINE SODIUM 100 MCG TABLET PO SCH (07:30)
--- NOTE | 2021-05-09 07:39 | NUR ---
DEMONSTRATOR SALES OPENING NOTES RECEIVED PT AWAKE IN BED IN NO ACUTE SIGNS OF DISTRESS. A/O X4. ABLE TO MAKE NEEDS KNOWN, DENIES PAIN OR ANY DISCOMFORTS AT THIS TIME. ON ROOM AIR, BREATHING EVEN AND UNLABORED. ON EXTERNAL [employer] LAW CLERK WITH CURRENT READING OF SB WITH HR OF 48-49, NO C/O CARDIAC DISTRESS VOICED AT THIS TIME. IV ACCESS ON LFA G#20 INTACT AND PATENT, IVF OF NS AT 75 ML/HR INFUSING WELL. SAFETY MEASURES IN PLACE: BED IN LOWEST LOCKED POSITION, HOB ELEVATED, SIDE RAILS UP X2. CALL LIGHT AND BEDSIDE TABLE WITHIN EASY REACH OF PT. WILL CONTINUE PT ACCORDINGLY.
[2021-05-09 08:00] VITALS: BP_SYST 128; BP_SYST 148; BP_SYST 149; BP_DIAS 47; BP_DIAS 48; BP_DIAS 60
[2021-05-09] MEDS: GABAPENTIN 100 MG CAPSULE PO SCH ×3 (08:25→16:10)
[2021-05-09] MEDS: APIXABAN 2.5 MG TABLET PO SCH ×2 (08:27→16:11)
[2021-05-09 08:28] VITALS: BP 148/48
[2021-05-09] MEDS ORDERED: Medication Not On Formulary EA (Omega-3/Dha/Epa/Fish Oil (Fish Oil 1,400 Mg Softgel) 1 E PO SCH (09:00)
[2021-05-09] MEDS ORDERED: CHOLECALCIFEROL 1,000 UNIT TABLET (VIT D3) PO SCH (09:00)
[2021-05-09] MEDS ORDERED: ASCORBIC ACID 500 MG TABLET PO SCH (09:00)
[2021-05-09] MEDS ORDERED: ATORVASTATIN 40 MG TABLET PO SCH (09:00)
[2021-05-09] MEDS ORDERED: MULTIPLE VIT (LYCOPENE/FA/MV,CA,IRON,MIN/LUT)1 TAB PO SCH (09:00)
--- NOTE | 2021-05-09 09:40 | NUR ---
RN NOTES PT'S IV ACCESS ON LFA G#20 INFILTRATED AND WAS REMOVED. NEW IV ACCESS INSERTED ON LFA G#22, TAPED AND DATED.
[2021-05-09 10:47] LABS: FERRITIN 250 ng/mL (8-388)
[2021-05-09 11:07] LABS: IRON, SERUM 65 ug/dl (50-175); TOTAL IRON BINDING CAPACITY 260 ug/dl (250-450)
--- NOTE | 2021-05-09 16:42 | NUR ---
RN DISCHARGED NOTES PATIENT DISCHARGED HOME IN STABLE CONDITION. A/O X4. ABLE TO MAKE NEEDS KNOWN. V/S TAKEN, RECORDED AND STABLE. NO SKIN ISSUES NOTED. ALL BELONGINGS ACCOUNTED FOR AND SIGNED FORM. IV ACCESS ON LFA G#22 REMOVED WITH NO ACTIVE BLEEDING NOTED, DRY DRESSING APPLIED AT SITE. NAME ARMBAND REMOVED. HEALTH TEACHINGS/DISCHARGED INSTRUCTIONS GIVEN TO PT AND VERBALIZED UNDEMANDING. PT LEFT UNIT VIA WHEELCHAIR AT 1630 ACCOMPANIED BY ME TO [facility]. PT'S SON JEANMARIE WAITING AT THE [facility] AND WILL TAKE PT'S HOME. MD AND CHARGE NURSE AWARE OF DISCHARGE.
== END 2021-05-09 17:00 | disposition home or self-care (01) | DRG 308 ==
LOC: ER 16:13 → TELE 20:20
PROVIDERS: ADMIT Nurse Practitioner Acute Care; ATTEND Family Medicine
DX: R00.1 Bradycardia, unspecified (principal); J18.9 Pneumonia, unspecified organism; N17.0 Acute kidney failure with tubular necrosis; E87.1 Hypo-osmolality and hyponatremia; E86.0 Dehydration; I48.91 Unspecified atrial fibrillation; Z20.822 Contact with and (suspected) exposure to COVID-19; I10 Essential (primary) hypertension; M19.90 Unspecified osteoarthritis, unspecified site; Z90.49 Acquired absence of other specified parts of digestive tract; Z88.1 Allergy status to other antibiotic agents; Z88.0 Allergy status to penicillin; Z79.01 Long term (current) use of anticoagulants; Z79.899 Other long term (current) drug therapy; I25.2 Old myocardial infarction; E78.00 Pure hypercholesterolemia, unspecified; E03.9 Hypothyroidism, unspecified; E78.5 Hyperlipidemia, unspecified; Z79.890 Hormone replacement therapy; E86.1 Hypovolemia; I70.0 Atherosclerosis of aorta; Z87.891 Personal history of nicotine dependence; D64.9 Anemia, unspecified; N13.9 Obstructive and reflux uropathy, unspecified
CPT/HCPCS: 36415; 71045-TC; 80048-TC; 80061-TC; 80076-TC; 82728-TC; 83540-TC; 83735-TC; 84100-TC; 84443-TC; 84484-TC; 85025-TC; 87081-TC; 93307-TC; C9803; G0378; J7030